=== PATIENT | male | born 1930 | race Caucasian/White ===

== ENCOUNTER 2016-09-09 16:00 | Inpatient (IN) | payer MEDICARE, OTHER ==
[~2016-09-09] VITALS: Ht 177.8 cm; Wt 63.5 kg
[~2016-09-09 16:00] MED LIST: BAYER CHEWABLE81 MG PO; BUMEX2 MG PO; CORDARONE200 MG PO; DIOVAN320 MG PO; DYAZIDE 37.5/251 CAP PO; FLOMAX0.4 MG PO; FLORAJEN3 CAPS460 MG PO; INDERAL10 MG PO; IPRAT-ALBUT 0.5-3 ML UPD; LIPITOR10 MG PO; LOVENOX30 MG/0.3 SC; MAXIPIME 1 GM/D51 G1 IV; MUCINEX600 MG PO; MUCOMYST 20200 MG/M2 PO; NAC600 MG PO; NIFEDIPINE ER60 MG PO; NITROSTAT0.4 MG SL; PEPCID20 MG PO; PLAVIX75 MG PO; PROCRIT/EP3000 UNITS SQ; PULMICORT0.5 MG/21 INH; SAW PALMETTO450 MG PO; TESSALON PERLE100 MG PO
[2016-09-09 18:21] VITALS: BP 129/57; BMI 20.1
--- NOTE | 2016-09-09 19:30 | NUR ---
PATIENT IN BED, AWAKE. DENIES CURRENT NEEDS.
[2016-09-09 21:10] VITALS: BP 115/56
--- NOTE | 2016-09-09 21:10 | NUR ---
ASSESSMENT AND HS MEDS COMPLETE. BRIDGED PATIENT'S HEELS DUE TO PINK SLIGHTLY SOFT HEELS. WILL MONITOR. O2 @ 2L PER N/C. CONTINUES ON TELEMETRY IN SR @65 BPM WITH BBB.
--- NOTE | 2016-09-09 22:00 | NUR ---
RESTING QUIETLY IN BED, EYES CLOSED.
--- NOTE | 2016-09-10 00:10 | NUR ---
RESTING QUIETLY IN BED, EYES CLOSED. GRANDSON IN RECLINER BEHIND DOOR TO ROOM.
--- NOTE | 2016-09-10 01:45 | NUR ---
PATIENT AWAKE. PROVIDED HIM WITH FRESH ICE WATER IN HIS BEDSIDE MUG. GRANDSON REPORTS HE HELPED MR. JOINER UP TO BR TO URINATE IN THE PAST HOUR. PATIENT DENIES CURRENT NEEDS.
--- NOTE | 2016-09-10 06:25 | NUR ---
FLUSHED LEFT FOREARM S/L WITH 10ML NS. REMAINS PATENT. PATIENT STATES HE CANNOT SIGN ADMISSION DOCUMENTS DUE TO HAND TREMORS. REVIWED INFORMATION CONTAINED IN DOCUMENTS WITH PATIENT. CO-WITNESSED HIS DOCUMENTS WITH NESTOR PATTERSON.
[2016-09-10 07:00] VITALS: BP 130/63
[2016-09-10 07:24] LABS: BASOPHILS 0.5 % (0.0-2.0); EOSINOPHILS 4.3 % (0-7); HEMATOCRIT 31.3 % (42.0-54.0); HEMOGLOBIN 10.2 g/dL (13.5-17.5); IMMATURE GRANULOCYTES 1.2 % (0-5); LYMPHOCYTES 19.8 % (15-50); MCH 28.5 pg (26.0-34.0); MCHC 32.6 g/dL (31.0-37.0); MCV 87.4 fL (80.0-100.0); MEAN PLATELET VOLUME 10.7 fL (7.4-10.4); MONOCYTES 12.9 % (2-11); NEUTROPHILS 61.3 % (40-80); RBC 3.58 10x6/uL (4.20-6.10); RDW 13.1 % (11.5-14.5); WBC 11.3 10x3/uL (4.8-10.8)
[2016-09-10 07:28] LABS: PLATELET COUNT 332 10x3/uL (130-400)
[2016-09-10 07:39] LABS: ANION GAP 13.4 mmol/L (8-16); CARBON DIOXIDE 25.6 mmol/L (21.0-32.0); CREATININE - SERUM 2.5 mg/dL (0.6-1.3)
--- NOTE | 2016-09-10 08:00 | NUR ---
SHIFT ASSMT COMPLETED.BREAKFAST GIVEN.ACCOMPAINED BY SON.CL IN REACH.
--- NOTE | 2016-09-10 12:00 | NUR ---
SITTING UP EATING LUNCH.DENIES NEEDS.
[2016-09-10 13:38] VITALS: Ht 177.8 cm; Wt 63.5 kg
--- NOTE | 2016-09-10 19:30 | NUR ---
PT IS RESTING IN BED WITH EYES OPEN. ALERT AND ORIENTED X 3. DENIES PAIN OR DISCOMFORT AT THIS TIME. VSS. TELEMETRY UNIT NOTED. SR'S ARE UP X 3 IN BED. CALL LIGHT AND BEDSIDE TABLE ARE WITHIN EASY REACH.
[2016-09-10 19:58] VITALS: BP 114/72
--- NOTE | 2016-09-10 21:17 | NUR ---
PT IS RESTING IN BED WITH EYES OPEN. VOICED NO NEEDS. NO DISTRESS NOTED.
--- NOTE | 2016-09-11 00:06 | NUR ---
RESTING IN BED WITH EYES CLOSED.
--- NOTE | 2016-09-11 03:27 | NUR ---
PT RESTING QUIETLY IN BED WITH EYES CLOSED. NO DISTRESS NOTED.
--- NOTE | 2016-09-11 05:30 | NUR ---
EYES CLOSED, RESPIRATIONS REGULAR AND UNLABORED, NO S/S OF ACUTE DISTRESS.
[2016-09-11 07:00] VITALS: BP 125/64
--- NOTE | 2016-09-11 08:00 | NUR ---
SHIFT ASSMT COMPLETED.DENIES NEEDS.BREAKFAST GIVEN.CL IN REACH.
--- NOTE | 2016-09-11 12:00 | NUR ---
SITTING UP IN WC EATING LUNCH.SON AT CHAIRSIDE VISITING.CL IN REACH.
--- NOTE | 2016-09-11 18:00 | NUR ---
SON AT BEDSIDE.DENIES NEEDS.
[2016-09-11 19:38] VITALS: BP 121/54
--- NOTE | 2016-09-11 20:09 | NUR ---
DC'D SALINE LOCK FROM LEFT FA, CANNULA INTACT, PT TOLERATED WELL. INSERTION DATED 09/08, SLIGHT REDNESS AT SITE OF INSERTION.
--- NOTE | 2016-09-11 22:49 | NUR ---
PT IS RESTING ON SIDE, EYES CLOSED, RESPIRATIONS REG AND UNLABORED.
--- NOTE | 2016-09-12 03:30 | NUR ---
pt stated he was in distress, pt concerned that he wasn't getting his flomax, referred emar and assured pt he was getting a daily dose of the medication, pt states he has prostrate problems and can't seem to empty his bladder. pt also states he has a feeling in his throat. pt states he gets it sometimes but and he has asked several doctors and they don't know what it is.
--- NOTE | 2016-09-12 05:31 | NUR ---
pt denies passing gas, ambulates with walker to bathroom, states his throat settled down, will see what it does when he lies down again.
[2016-09-12 07:32] LABS: ANION GAP 14.1 mmol/L (8-16); CALCIUM 8.6 mg/dL (8.5-10.1); CARBON DIOXIDE 23.8 mmol/L (21.0-32.0); CREATININE - SERUM 2.4 mg/dL (0.6-1.3); POTASSIUM - SERUM 3.9 mmol/L (3.5-5.1)
[2016-09-12 07:49] LABS: BASOPHILS 0.4 % (0.0-2.0); HEMATOCRIT 31.3 % (42.0-54.0); HEMOGLOBIN 10.1 g/dL (13.5-17.5); IMMATURE GRANULOCYTES 1.1 % (0-5); LYMPHOCYTES 20.4 % (15-50); MCH 28.7 pg (26.0-34.0); MCHC 32.3 g/dL (31.0-37.0); MCV 88.9 fL (80.0-100.0); MEAN PLATELET VOLUME 10.1 fL (7.4-10.4); MONOCYTES 9.5 % (2-11); NEUTROPHILS 64.6 % (40-80); PLATELET COUNT 370 10x3/uL (130-400); RBC 3.52 10x6/uL (4.20-6.10); RDW 13.5 % (11.5-14.5); WBC 11.1 10x3/uL (4.8-10.8)
[2016-09-12 08:45] VITALS: BP 131/67
--- NOTE | 2016-09-12 09:22 | RHP ---
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 The patient is an 85-year-old gentleman who is admitted to the inpatient rehab for CHF myopathy, had a recent non-Q-wave WI with cardiac catheterization with stent placement on August 30. He has got a history of chronic systolic congestive heart failure, coronary artery disease, hypertension, and hyperlipidemia. He presented to the Emergency Room on September 01 with increasing shortness of breath, dyspnea on exertion, and found to be in pulmonary edema, found to be in ____ with jpxur-fz-vzzxsjf renal failure. His creatinine was in the 1.9 to 2 range. He was now in the 4 range. He did undergo cardiac catheterization for a non-Q-wave WI with PTCA stent of the left main and circumflex. He does not have any recurrent anginal type symptomatology. He was doing well after this and left hospital; however, became more progressively shortness of breath due to renal failure. He has not had any palpitations since being on telemetry, but has not had any further ventricular tachycardia either. He had been in a controlled sinus rhythm on amiodarone. He also had a CT-guided thoracentesis on September 03 for a right pleural effusion and 1000 cc of sanguinous fluid was aspirated. He is definitely deconditioned and needs inpatient rehab to get back to prior level of functioning. COMORBIDITIES: Include gyvdm-bh-zyklaex renal sufficiency, coronary artery disease, pulmonary edema, recent non-Q-wave WI, ventricular tachycardia, hyperlipidemia, ischemic heart disease, right pleural effusion, history of coronary artery disease, and chronic kidney disease. PAST MEDICAL HISTORY: Significant for coronary artery disease. He has got a history of chronic kidney disease, hypertension, and renal artery stenosis. PAST SURGICAL HISTORY: Includes cataract surgery. He has had stent placement, coronary artery bypass grafting. ALLERGIES: No known drug allergies. CURRENT MEDICATIONS: Include Flomax 0.4 mg daily, nifedipine XL 60 mg daily. He is on ____. He is on Lovenox 30 mg subQ daily, Plavix 75 mg daily, Lipitor 10 mg daily, aspirin chewable 81 mg daily, Cordarone 200 mg daily, propranolol 10 mg t.i.d., Nitrostat p.r.n., Mucinex 600 mg b.i.d., Pepcid 20 mg b.i.d., Procrit 6000 units 3 times weekly, budesonide 0.5 mg b.i.d., ____ 100 mg t.i.d., Mucomyst 600 mg q.12 hours, and MiraLax 17 grams in 8 ounces of water daily. HABITS: No current alcohol or tobacco use. FAMILY HISTORY: Noncontributory. HISTORY AND PHYSICAL [id number] DOMENICA JOINER SOCIAL HISTORY: The patient wants to return back home and hopefully get back to his prior level of functioning and be able to function there. REVIEW OF SYSTEMS: GENERAL: Does complain of weakness and fatigue. HEENT: Denies cold, cough, or congestion. CARDIOVASCULAR: Denies chest pain. PHYSICAL EXAMINATION: VITAL SIGNS: Stable, afebrile. GENERAL: Elderly gentleman in no acute distress, alert upon exam. HEENT: Normocephalic and atraumatic. Mucosa moist. NECK: Supple. No lymphadenopathy. LUNGS: Clear at this time. HEART: ____ rate and rhythm. ABDOMEN: Benign. EXTREMITIES: No clubbing, cyanosis, or edema. NEUROLOGIC: Seems intact. LABORATORY DATA: His white count 11.3, H&H of 10 and 31 and platelet count was 332. Sodium 136, potassium 4.0, BUN and creatinine of 71 and 2.5 and blood sugar was noted to be 89. ASSESSMENT: This is an 85-year-old gentleman admitted to the rehab with a working diagnosis of congestive heart failure induced myopathy. The patient has potential to make improvement. We instituted the following multidisciplinary therapies including to, but not limited to physical, occupational, respiratory, speech, nutritional services, prosthetics and orthotics. Given his complex condition and risk for more complications, rehabilitation services cannot be provided at a low level of care such as a shelter facility. PLAN: 1. Admit to [facility] rehab for intensive inpatient therapy to include the following disciplines: A. Physical therapy to improve gait, all transfer skills and bed mobility to a modified independent level. B. Occupational therapy to improve activities of daily living to a modified independent level. C. Case management to assist with discharge planning and placement options. D. Nutrition to assist with nutritional needs. E. Rehabilitation nursing to assist in monitoring the patient's underlying medical conditions and to assist with any type of bowel or bladder management. 2. The patient's current medications and medical care will be continued. 3. The patient will be placed on standard fall precautions. 4. The patient's estimated length of stay is approximately 10-14 days. 5. Discuss this patient during care team staff meeting this week. TRANSINT:[id number] Voice Confirmation ID: [id number] DOCUMENT ID: [id number] HISTORY AND PHYSICAL [id number] DOMENICA JOINER SCOTT MD at 0922 CC: [id number] DICTATION DATE: 09/10/16 1146 TECHNICAL SUPPORT REPRESENTATIVE: 09/10/16 1718 ADM IN [id number] [place] [address]
--- NOTE | 2016-09-12 20:53 | NUR ---
PT RESTING IN BED. VS AND ASSESSMENT COMPLETE. PT REMINDED TO USE CL FOR NEEDS. PT DENEIS NEEDS AT THIS TIME. BED LOW. CLIN REACH. WCTM.
[2016-09-12 21:27] VITALS: BP 126/64
--- NOTE | 2016-09-12 23:35 | NUR ---
PT RESTING, EYES CLOSED. BED LOW. CL IN REACH. WCTM.
--- NOTE | 2016-09-13 01:25 | NUR ---
ASSISTED PT TO BR. PT BACK IN BED RESTING AND DENIES FURTHUR NEEDS AT THSI TIME. BED LOW. CL IN REACH. WCTM.
--- NOTE | 2016-09-13 08:11 | NUR ---
SITTING ON SIDE OF BED EATING BREAKFAST. DENIES NEEDS. CALL LIGHT IN REACH
[2016-09-13 08:34] VITALS: BP 148/67
--- NOTE | 2016-09-13 11:08 | NUR ---
NUTRITION MONITORING & EVAL CHART REVIEWED. PT TOLRATING RENAL DIET. ~75% INTAKE RECENT MEALS. NO BM RECORDED. RD FOLLOWING
--- NOTE | 2016-09-13 13:13 | NUR ---
LAYING DOWN IN BED RESTING QUIETLY. APPETITE IS POOR FOR LUNCH. FAMILY VISITING IN ROOM
--- NOTE | 2016-09-13 15:00 | NUR ---
SITTING UP IN W/C. ALERT AND ORIENTED. DENIES PAIN
--- NOTE | 2016-09-13 18:36 | NUR ---
RESTING QUIETLY IN BED. FAMILY VISITED. DENIES NEEDS
--- NOTE | 2016-09-13 19:10 | NUR ---
PATIENT IN BED, DENIES NEEDS.
--- NOTE | 2016-09-13 20:50 | NUR ---
ASSESSMENT AND HS MEDS COMPLETE. DENIES NEEDS. REPOSRT WAS UP TO BR WITH ASSIST ABOUT 40 MINUTES AGO.
[2016-09-13 21:19] VITALS: BP 114/59
--- NOTE | 2016-09-13 22:25 | NUR ---
RESTING QUIELTY IN BED, EYES CLOSED. LYING ON LEFT SIDE. EARLIER AT 2049 APPLIED BUTT PASTE TO MILDLY PINK BUTTOCKS/COCCYX AND TURNED PATIENT TO LEFT SIDE.
--- NOTE | 2016-09-14 00:05 | NUR ---
RESTING QUIETLY IN BED, EYES CLOSED AFTER TOILETING AT COMMODE AND RETURNING TO BED @ 2340.
--- NOTE | 2016-09-14 02:00 | NUR ---
RESTING IN BED, EYES CLOSED. ASSISTED HIM TO AMBULATE TO BR @ 0115 TO URINATE.
--- NOTE | 2016-09-14 03:50 | NUR ---
ASSISTED PATIENT UP TO BR TO URINATE, STANDING WITH R/W AT COMMODE. HAS BEEN USING CALL LIGHT TO CALL FOR ASSIST SINCE HE WENT BACK TO BED AFTER GETTING UP ALONE @ 2340. COMMENDED HIM FOR COOPERATING TO KEEP HIM SAFE.
[2016-09-14 05:52] LABS: BASOPHILS 0.5 % (0.0-2.0); EOSINOPHILS 3.2 % (0-7); HEMATOCRIT 28.1 % (42.0-54.0); HEMOGLOBIN 8.9 g/dL (13.5-17.5); IMMATURE GRANULOCYTES 0.8 % (0-5); LYMPHOCYTES 17.6 % (15-50); MCH 28.3 pg (26.0-34.0); MCHC 31.7 g/dL (31.0-37.0); MCV 89.2 fL (80.0-100.0); MEAN PLATELET VOLUME 9.9 fL (7.4-10.4); MONOCYTES 9.3 % (2-11); NEUTROPHILS 68.6 % (40-80); PLATELET COUNT 389 10x3/uL (130-400); RBC 3.15 10x6/uL (4.20-6.10); RDW 13.8 % (11.5-14.5); WBC 11.1 10x3/uL (4.8-10.8)
--- NOTE | 2016-09-14 06:09 | NUR ---
ASSISTED PATIENT UP TO BR TO TOILET AND THEN CHANGE HIS CLOTHING.
[2016-09-14 06:12] LABS: ANION GAP 12.8 mmol/L (8-16); CARBON DIOXIDE 23.1 mmol/L (21.0-32.0); CREATININE - SERUM 2.2 mg/dL (0.6-1.3); POTASSIUM - SERUM 3.9 mmol/L (3.5-5.1)
--- NOTE | 2016-09-14 09:15 | NUR ---
SITTING ON SIDE OF THE BED AND TOOK MEDS WITH EASE.
[2016-09-14 09:59] VITALS: BP 158/71
--- NOTE | 2016-09-14 11:16 | NUR ---
AMBULATING IN THE HALLWAY WITH THERAPIST AND WALKER.
--- NOTE | 2016-09-14 13:19 | NUR ---
SITTING IN CHAIR WITH FAMILY IN THE ROOM.
--- NOTE | 2016-09-14 15:35 | NUR ---
RESTING IN BED WITH SIDERAILS X2.
--- NOTE | 2016-09-14 17:57 | NUR ---
SITTING ON SIDE OF THE BED EATING DINNER.
--- NOTE | 2016-09-14 19:00 | NUR ---
RESTING IN BED, EYES CLOSED. NO DISTRESS NOTED.
[2016-09-14 19:45] VITALS: BP 134/59
--- NOTE | 2016-09-14 22:40 | NUR ---
ASSESSMENT AND HS MEDS COMPLETE. DENIES NEEDS. TOOK HS MEDS WITHOUT DIFFICULTY.
--- NOTE | 2016-09-15 | NUR ---
RESTING IN BED, EYES CLOSED. LYING ON RIGHT SIDE.
--- NOTE | 2016-09-15 01:50 | NUR ---
RESTING IN BED ON RIGHT SIDE, EYES CLOSED. NO EVIDENT DISCOMFORT.
--- NOTE | 2016-09-15 04:50 | NUR ---
RESTING QUIETLY IN BED ON RIGHT SIDE. NO APPARENT DISCOMFORT.
[2016-09-15 05:30] VITALS: BP 145/89
--- NOTE | 2016-09-15 05:30 | NUR ---
PATIENT CALLED TO REPORT PRESSURE HEADACHE IN HIS JAWS FACE AND HEAD. VS ARE FOLLOWS: T98.7, P 108 FLUTTER PER TELEMETRY, RR 24, BP 145/89. PULSEOX WAS 93% ON RA. PLACED HIM ON O2 @ 2L WHICH HAS BEEN ON STANDBY FOR DAYS. RESULTING PULSEOX IS 96%. PLACE COOL DAMP CLOTH ON HIS FOREHEAD AND GAVE HIM TYLENOL 650MG PO FOR HIS HEADACHE PER 1-TIME ORDER.
--- NOTE | 2016-09-15 06:50 | NUR ---
HONG FROM R/T REPORTS AFTER TREATMENT PATIENT IS SUSTAINING PULSEOX OF 88% ON 3L PER N/C. PATIENT REPORTS TO ME THAT HE HAS HAD LITTLE IMPROVEMENT IN HIS DISCOMFORT, BUT THAT HIS PAIN IS LESS A HEADACHE HE EARLIER DESCRIBED IT THAN ACHING IN THE FACE AND BILATERAL JAWLINE DONW INTO HIS NECK. WILL CALL DR. GAMBOA.
--- NOTE | 2016-09-15 07:00 | NUR ---
Pt. was received in bed at the beginning of this shift. Dr. Saldana was phoned x 2 with messages left to phone back the charge nurse. Pt. in heart flutter, low 100's. 02 sat is 88% on 302. Will continue to monitor closely.
[2016-09-15 08:00] VITALS: BP 133/78
--- NOTE | 2016-09-15 08:00 | NUR ---
DR. BEE CONDON. NEW ORDERS PLACED. EKG IS BEING DONE AND LAB DRAWING IN PROGRESS. REGISTERED SALES ASSISTANT ALERTED TO PT'S CONDITION. DR. TRAORE BEING CONSULTED.
--- NOTE | 2016-09-15 09:51 | NUR ---
Nutrition Follow Up: Chart reviewed. Diet: Renal PO Intake: 56% (8 meal avg) No new wt +BM 09/14/16 Meds and labs noted Pt with fair po intake at this time. Rec consider liberalizing diet to encourage po intake. RD following.
[2016-09-15 10:08] LABS: CKMB 15.5 U/L (0.0-3.6); CREATINE KINASE 121 UL (21-232)
--- NOTE | 2016-09-15 14:49 | NUR ---
CARE TEAM MEETING WAS HELD AND SON ATTENDED THE MEETING. TENATIVE DISCHARGE DATE IS 09/22/16 HOME WITH FAMILY, WILL CONTINUE TO FOLLOW WITH PATIENT AND WILL ASSIT WITH DISCHARGE NEEDS.
[2016-09-15 15:31] LABS: CKMB 103.1 U/L (0.0-3.6)
[2016-09-15 15:33] LABS: CREATINE KINASE 428 UL (21-232); TROPONIN-I 9.507 ng/mL (0.000-0.060)
--- NOTE | 2016-09-15 16:23 | EC ---
PATIENT:DOMENICA JOINER DATE OF SERVICE: 09/09/16 SEX: M MEDICAL RECORD: [id number] DATE OF : 29 LOCATION:[facility] AGE OF PATIENT: 85 ADMISSION DATE: 09/09/16 REFERRING PHYSICIAN: INTERPRETING PHYSICIAN: ENA BALTAZAR MD ECHOCARDIOGRAM REPORT ECHO CHARGES 4 ECHO COMPLETE CLINICAL DIAGNOSIS: MON Q KS/ CHEST PAIN ASSESS EF HX OF CAD/CABG/STENT ECHOCARDIOGRAPHIC MEASUREMENTS (adult normal given) AC root (d.<3.7cm) 3.8 LV Septum d (<1.2 cm> 1.8 Valve Excursion 1.7 LV Septum (systole) 1.9 Left Atria (s.<4.0cm> 3.9 LVPW d(<1.2cm) 1.7 RV (d.<2.3cm) 3.7 LVPW (sytole) 2.0 LV diastole(<5.6CM) 4.7 MV E-F(>70mm/sec) LV systole 4.1 LVOT Diameter 1.6 MV exc.(>10mm) 1.5 Est.ejection fraction (50-75%) Pericardial Effusion N DOPPLER: LVIT A 146 E 115 LA RVSP 44 LVOT 79 AOP1/2T 585 Asc. Ao 159 RVOT RA PA AV Gradient Peak 10.17 AV Mean 5.18 AV Area 1.1 MV Gradient Peak 7.6 MV Mean 2.3 MV Area COMMENTS: Director [employer]: Quintin MONROE Chimney Builder:2 Dr. Albert TAPE# PACS DATE OF SERVICE: 09/15/2016 Echocardiogram FINDINGS: 1. Left ventricle chamber size is within normal limits. Left ventricular systolic function is mildly depressed. Overall ejection fraction is in 40% range. 2. Left atrium is within normal limits at 3.9 cm. Right atrium and right ventricular chamber sizes are mildly dilated. ECHOCARDIOGRAM REPORT [id number] DOMENICA JOINER 3. Valvular structures: Aortic valve demonstrates mild calcific aortic stenosis. Valve area calculates 1.1 cm-squared and there is gradient of 10 mm across the valve. The remaining valvular structures have normal structure and motion. 4. Doppler interrogation reveals pdqjthng-gg-qhmoje mitral regurgitation, tofc-sj-qlfifxay tricuspid regurgitation, no other valvular insufficiency or stenosis and pulmonary systolic pressure is preserved at 44 mmHg. 5. No evidence of pericardial effusion or left ventricular thrombus. TRANSINT:[id number] Voice Confirmation ID: [id number] DOCUMENT ID: [id number] ENA BALTAZAR MD at 1623 CC: [id number] DICTATION DATE: 09/15/16 1319 EXPERIMENTAL PHYSICIST: 09/15/16 1342 ADM IN [facility] [address] [id number]
--- NOTE | 2016-09-15 18:48 | NUR ---
DR. MCCLELLAND ROUNDED TWICE THIS DAY. NEW ORDERS RECEIVED FROM HIM. PT. HAS HAD NO CHEST PAIN ALL DAY SINCE PUTTING NITRO OINTMENT 1 INCH ON CHEST Q 6 HOURS ORDERED. FAMILY IN AND OUT ALL DAY.
--- NOTE | 2016-09-15 19:00 | NUR ---
IN BED, AWAKE. LYING ON RIGHT SIDE, HOB UP 15 DEGREES. DENIES NEEDS.
[2016-09-15 21:10] VITALS: BP 124/60
--- NOTE | 2016-09-15 21:50 | NUR ---
ASSESSMENT AND HS MEDS COMPLETE. DENIES DISCOMFORT. IRRITATED THAT LAB WAS NOT ALREADY HERE TO DRAW HIS 3RD SET OF CARDIAC ENZYMES. TOLD HIM THAT THE EXACT TIMING WAS NOT IMPORTANT THAT THE DOCTOR HAVE THE 3RD SET TO COMPARE TO PREVIOUS LABS. INSISTED IT WAS TIME TO APPLY HIS NITRO PASTE. SAID IT WAS ONLY APPLIED ONCE TODAY, BUT INFORMED HIM THE EMAR RECORD SHOWS IT APLIED X2 ALREADY TODAY AND IT IS NOT DUE AGAIN UNTIL 2300 HRS. PATIENT OBVIOUSLY IS A BIT ANXIOUS REGARDING HIS CARDIAC ISSUES TODAY AND I BELIEVE THAT HIS IRRITABILITY IS DUE TO HIS ANXIETY.
--- NOTE | 2016-09-15 22:10 | NUR ---
RECEIVED A CALL FROM KATY JOINER, PATIENT'S SON INQUIRING ABOUT MR. JOINER'S LABS. TOLD HIM THE PHLEBOTAMIST HAD JUST DRAWN THEM AND THAT IT WOULD BE AWHILE BEFORE THEY RESULTED. ALSO TOLD HIM THAT I CANNOT RELEASE THE RESULTS OF MR. JOINER'S LABS UNTIL I HAVE SPOKEN TO THE PSYCHOLOGIST EDUCATIONAL WHICH I WILL DO WHEN RESULTS ARE AVAILABLE. HOWEVER, I DID TELL HIM I WILL CALL HIM AFTER I CALL DR. GIANG AND LET HIM KNOW IF THE DOCTOR WANTS TO MOVE PATIENT TO PCU.
[2016-09-15 22:34] LABS: CKMB 96.7 U/L (0.0-3.6)
[2016-09-15 22:35] LABS: CREATINE KINASE 552 UL (21-232); TROPONIN-I 17.217 ng/mL (0.000-0.060)
--- NOTE | 2016-09-15 23:15 | NUR ---
CLEANED OFF PRIOR NTG PASTE AND APPLIED FRESH NTG PASTE AND SECURED COVER SHEET WITH PAPER TAPE TO PATIENT'S LEFT CHEST. PATIENT CONTINUES ON TELEMETRY IN 60'S IN AND OUT OF CAF AND FLUTTER. CONTINUES TO DENY DISCOMFORT.
--- NOTE | 2016-09-15 23:30 | NUR ---
CALLED DR. GIANG WHO IS SIGNAL OPERATOR LINGUIST FOR DR. MCCLELLAND AND REPORTED RESULTS OF RECENT CE'S. INFORMED HIM PATIENT IS COMFORTABLE, DENIES CHEST PAIN OR OTHER DISCOMFORT AND THAT HE CONTINUES ON TELEMETRY. STATED THAT LONG PATIENT IS IN NO DISCOMFORT AND WITH HIS CK-MB NOW DROPPING THAT PATIENT WILL STAY ON REHAB TONIGHT, BARRING SIGNIFICANT NEGATIVE CHANGES. IMMEDIATELY CALLED PT'S SON TO REPORT THE SAME TO HIM. HE SEEMED RELIEVED. SAYS HE WILL BE IN EARLY (729) IN THE AM.
--- NOTE | 2016-09-16 00:15 | NUR ---
ASSISTED PATIENT UP TO BR. SAYS HE THINKS HE WILL HAVE A BM.
--- NOTE | 2016-09-16 02:30 | NUR ---
PATIENT AWAKE, CHANGING POSITIONS. DENIES CURRENT NEEDS.
--- NOTE | 2016-09-16 04:25 | NUR ---
RESTING IN BED ON LEFT SIDE, EYES CLOSED. RESPIRATIONS ARE QUIET AND UNLABORED.
--- NOTE | 2016-09-16 05:35 | NUR ---
ASSISTED PATIENT UP TO BR TO URINATE AT 0505. JUST NOW APPLIED FRESH NTG PASTE (1"). SECURED PAPER WITH TAPE TO SECURE TO MID CHEST. PATIENT DENIES NEEDS. SAYS HAS BEE RESTING WELL TONIGHT.
--- NOTE | 2016-09-16 05:45 | NUR ---
STRAIGHTENING PRESS OPERATOR HELPER JUST CHANGED PATIENT FROM LARGE URINARY IN CONTINENCE. WENT TO HELP HIM PUT ON FRESH SCRUB TOP AND FOUND PATIENT INCONTINENT OF A MODERQATED AMOUNT OF URINE THAT PENETRATED HIS BRIEF AND IN TO HIS PINK BED PAD. CLEANSED PATIENT. REAPPLIED MYCOSTATIN CREAM AND NYSTATIN POWDER TO RASH IN GROINS, ON SCROTUM AND NOW EXTENDING TO HIS BUTTOCKS. CHANGED HIS SCRUB TOP AND PIN BED PAD. PATIENT DENIES FURTHER NEEDS.
[2016-09-16 07:05] LABS: BASOPHILS 0.4 % (0.0-2.0); EOSINOPHILS 1.9 % (0-7); HEMATOCRIT 29.5 % (42.0-54.0); HEMOGLOBIN 9.5 g/dL (13.5-17.5); IMMATURE GRANULOCYTES 0.4 % (0-5); LYMPHOCYTES 12.8 % (15-50); MCH 29.2 pg (26.0-34.0); MCHC 32.2 g/dL (31.0-37.0); MCV 90.8 fL (80.0-100.0); MEAN PLATELET VOLUME 9.9 fL (7.4-10.4); MONOCYTES 8.2 % (2-11); NEUTROPHILS 76.3 % (40-80); PLATELET COUNT 362 10x3/uL (130-400); RBC 3.25 10x6/uL (4.20-6.10); RDW 14.5 % (11.5-14.5); WBC 14.2 10x3/uL (4.8-10.8)
[2016-09-16 07:17] LABS: ANION GAP 14.8 mmol/L (8-16); CALCIUM 8.9 mg/dL (8.5-10.1); CARBON DIOXIDE 22.7 mmol/L (21.0-32.0); CREATININE - SERUM 2.3 mg/dL (0.6-1.3); POTASSIUM - SERUM 4.5 mmol/L (3.5-5.1)
--- NOTE | 2016-09-16 08:00 | NUR ---
SITTING UP ON SIDE OF BED EATING BREAKFAST. DENIES CHEST PAIN OR SOB
[2016-09-16 09:50] VITALS: BP 120/59
--- NOTE | 2016-09-16 15:56 | NUR ---
PT WAS RESTING QUIETLY IN BED AND SON REFUSED FOR PT TO BE AWAKEN FOR HIS SCHEDULED SHOWER. AT ALMOST 1600, SON COMES TO DESK AND STATES FATHER IS READY FOR BATH. NURSE EXPLAINS AND APOLOGIZES TO SON THAT BATH NOT POSSIBLE RIGHT NOW DUE TO ADMISSIONS COMING AND STAFF TIED UP WITH THAT. SON STATED OK.
--- NOTE | 2016-09-16 19:45 | NUR ---
PT IS RESTING IN BED WITH EYES OPEN. ALERT AND ORIENTED X 4. DENIES ACUTE DISCOMFORT AT THIS TIME. NO COMPLAINT OF CHEST PAIN VOICED. VSS. PT IS DOING A UPDRAFT TX AT THIS TIME, AND TALKING TO THE PHONE TO A FRIEND. TELEMETRY UNIT IS INTACT. LEFT ARM SALINE LOCK NOTED. SR'S ARE UP X 3 IN BED. CALL LIGHT AND BEDSIDE TABLE ARE WITHIN EASY REACH.
--- NOTE | 2016-09-16 22:01 | NUR ---
PT ASSISTED TO THE BATHROOM WITH SBA. VOIDED WITHOUT DIFFICULTY. NO FURTHER NEEDS VOICED.
[2016-09-16 23:18] VITALS: BP 114/75
--- NOTE | 2016-09-17 01:30 | NUR ---
RESTING IN BED WITH EYES CLOSED.
--- NOTE | 2016-09-17 03:39 | NUR ---
PT RESTING QUIETLY IN BED WITH EYES CLOSED. NO ACUTE DISTRESS NOTED.
--- NOTE | 2016-09-17 04:02 | NUR ---
pt resting quietly, eyes closed respirations regular and unlabored, no s/s of acute distress. earlier in shift patient was watching tv and denied any needs.
--- NOTE | 2016-09-17 06:28 | NUR ---
PT RESTING IN BED WITH EYES OPEN. NO NEEDS VOICED. ASSISTED TO BATHROOM PRN.
[2016-09-17 09:00] VITALS: BP 137/60
--- NOTE | 2016-09-17 09:40 | NUR ---
SITTING IN WHEELCHAIR IN THE ROOM. CALLIGHT IN REACH AND NO NEEDS VOICED.
--- NOTE | 2016-09-17 11:35 | NUR ---
PT TOOK A SHOWER AND NO FALLS NOTED.
--- NOTE | 2016-09-17 13:26 | NUR ---
PT GETTING IN BED FROM WHEELCHAIR. NO NEEDS VOICED.
--- NOTE | 2016-09-17 15:49 | NUR ---
SITTING IN WHEELCHAIR IN GYM WORKING WITH THERAPY.
--- NOTE | 2016-09-17 17:32 | NUR ---
GET UP ON SIDE OF THE BED FOR DINNER.
--- NOTE | 2016-09-17 19:30 | NUR ---
PT IS RESTING IN BED WITH EYES OPEN. ALERT AND ORIENTED X 4. DENIES PAIN OR DISCOMFORT. VSS. LFA SALINE LOCK NOTED. TELEMETRY UNIT IS ON. PT STATES HE HAS HAD NO CHEST PAIN OR DISCOMFORT SINCE YESTERDAY. SR'S ARE UP X 2 IN BED. CALL LIGHT AND BEDSIDE TABLE ARE WITHIN EASY REACH.
[2016-09-17 20:01] VITALS: BP 119/60
--- NOTE | 2016-09-17 22:06 | NUR ---
RESTING QUIETLY IN BED WITH EYES CLOSED. RESPS ARE EVEN AND UNLABORED. NO ACUTE DISTRESS NOTED.
--- NOTE | 2016-09-18 00:01 | NUR ---
RESTING IN BED WITH EYES CLOSED.
--- NOTE | 2016-09-18 02:30 | NUR ---
PT AMBULATED TO THE BATHROOM WITH SBA. VOIDED WITHOUT DIFFICULTY. MED LOOSE BM NOTED. PT BECAME VERY SOB UPON RETURNING TO BED. O2 PLACED ON PT. HE CALMED DOWN QUICKLY. PT STATED HE FELT BETTER THEN.
--- NOTE | 2016-09-18 04:00 | NUR ---
RESTING, OXYGEN ON, INCREASED SOB WITH EXERTION.
--- NOTE | 2016-09-18 04:31 | NUR ---
PT AMBULATED TO THE BATHROOM WITH SBA. VOIDED WITHOUT DIFFICULTY. SMALL LOOSE BM NOTED. PT AMBULATED BACK TO BED. UPON GETTING BACK TO BED, PT IS VERY SHORT OF BREATH, AND WHEEZING AUDIBLY. O2 PLACED ON PT @ 2LPM. PT RETURNED TO NORMAL BREATHING QUICKLY. NEW NITRO PATCH APPLIED TO PT.
--- NOTE | 2016-09-18 05:55 | NUR ---
PT RESTING IN BED WITH EYES CLOSED. RESPS ARE EVEN AND UNLABORED. NO ACUTE DISTRESS NOTED. PT NOT AWOKEN AT THIS TIME.
--- NOTE | 2016-09-18 06:32 | NUR ---
LEFT NOTE FOR DR. GAMBOA, REGARDING INCREASED SOB OF BREATH.
[2016-09-18 09:00] VITALS: BP 107/45
--- NOTE | 2016-09-18 09:40 | NUR ---
RESTING ON RT SIDE IN BED RESP EASY WITH O2 2L/NC. CALLIGHT IN REACH. TOOK AM PILLS WITH EASE. NO NEEDS VOICED.
--- NOTE | 2016-09-18 10:35 | NUR ---
DR. GAMBOA NOTIFIED ABBOUT CHANGED IN PT'S BREATHING VIA PHONE AND HERE TO SEE PT.
[2016-09-18 11:42] LABS: CKMB 4.4 U/L (0.0-3.6)
[2016-09-18 11:44] LABS: TROPONIN-I 13.933 ng/mL (0.000-0.060)
[2016-09-18 11:57] LABS: CREATINE KINASE 490 UL (21-232)
--- NOTE | 2016-09-18 13:01 | NUR ---
PT IN WHEELCHAIR AND ROLLING IN HALLWAY WITH SON.
--- NOTE | 2016-09-18 15:45 | NUR ---
RESTING ON BACK IN BED WITH CALLIGHT IN REACH.
--- NOTE | 2016-09-18 17:47 | NUR ---
SITTING ON SIDE OF THE BED EATING DINNER. NO NEEDS VOICED.
--- NOTE | 2016-09-18 19:22 | NUR ---
PT IS RESTING IN BED WITH EYES OPEN. ALERT AND ORIENTED X 4. PT DENIES ANY DISCOMFORT AT THIS TIME. PT STATES HE DIDNT REALLY HAVE A BAD DAY, BUT HAS NOT FELT WELL ALL DAY. HE DENIES ANY FEELING ANY WORSE THAN HE HAS THE LAST FEW DAYS. TELEMETRY UNIT IS INTACT. SR'S ARE UP X 2 IN BED. CALL LIGHT AND BEDSIDE TABLE ARE WITHIN EASY REACH.
[2016-09-18 20:00] VITALS: BP 124/56
--- NOTE | 2016-09-18 22:04 | NUR ---
PT. IN BED WITH HOB UP FOR COMFORT. EYES CLOSED, RESP. EVEN AND CALL LIGHT WITHIN REACH.
--- NOTE | 2016-09-18 22:11 | NUR ---
PT IS RESTING QUIETLY IN BED WITH EYES CLOSED. RESPS ARE EVEN AND UNLABORED. NO ACUTE DISTRESS NOTED.
--- NOTE | 2016-09-19 00:24 | NUR ---
PT RANG CALL LIGHT STATING HIS NITRO PATCH WAS NOT WORKING, AND HE WAS HAVING ANGINA PAIN. B/P15/. PULSE 103. RESPS 24. PT MOANING IN PAIN. CARDIAC ENZYMES AND EKG ORDERED STAT. PT GIVEN NITRO SUBLINGUAL. HOB UP 30 DEGREES. O2 IS ON @ 3LPM PER NC.
--- NOTE | 2016-09-19 00:35 | NUR ---
THIRD NITRO GIVEN SUBLINGUAL. PT CONTINUES TO COMPLAIN OF CHEST PAIN. RAPID RESPONSE CALLED. UPON REENTERING ROOM, PT STATES HE FEELS BETTER NOW. BP 161/77. PULSE 100.
--- NOTE | 2016-09-19 00:58 | NUR ---
PT VOICED COMPLAINT OF HE THOUGHT HIS NITRO PATCH WAS IN THE WRONG PLACE, AND THAT IS WHAT CAUSED THIS PROBLEM. Teresa COSBY INFORMED PT WE WOULD MOVE IT TO WHERE HE WANTED IT. NEW NITRO PATCH APPLIED.
--- NOTE | 2016-09-19 00:59 | NUR ---
BEDSIDE COMMODE PLACED AT PTS BEDSIDE SO HE WOULD NOT HAVE TO EXCERT HIMSELF HARD GOING TO THE BATHROOM. PT STATES HE WILL NOT USE THIS, AND WILL AMBULATE TO THE BATHROOM WHEN HE NEEDS TO. COMMODE LEFT AT BEDSIDE.
[2016-09-19 01:21] LABS: CKMB 4.3 U/L (0.0-3.6); CREATINE KINASE 54 UL (21-232)
--- NOTE | 2016-09-19 01:22 | NUR ---
PT IS RESTING IN BED WITH EYES CLOSED. RESPS ARE EVEN AND UNLABORED. PT DENIES PAIN OR DISCOMFORT.
[2016-09-19 01:23] LABS: TROPONIN-I 16.197 ng/mL (0.000-0.060)
--- NOTE | 2016-09-19 01:24 | NUR ---
LAB CALLED TROPONIN OF 16.197
--- NOTE | 2016-09-19 03:13 | NUR ---
PT RESTING IN BED WITH EYES CLOSED. NO ACUTE DISTRESS NOTED.
--- NOTE | 2016-09-19 05:56 | NUR ---
PT RESTING IN BED WITH EYES OPEN. HE DENIES ANY DISCOMFORT THIS AM. TOLERATED AM MED WITHOUT DIFFICULTY. NO NEEDS VOICED.
--- NOTE | 2016-09-19 07:00 | NUR ---
Pt. was received in bed awake and oriented x 3. He denies any pain or discomfort. Vital signs: Temp. 97.9, pulse 73, resp. 16, b/p 117/74, 02Sat. 98%. Will be monitoring him closely this shift.
[2016-09-19 07:25] LABS: CKMB 3.3 U/L (0.0-3.6); CREATINE KINASE 47 UL (21-232)
[2016-09-19 07:26] LABS: TROPONIN-I 15.414 ng/mL (0.000-0.060)
[2016-09-19 09:19] LABS: BASOPHILS 0.6 % (0.0-2.0); EOSINOPHILS 5.2 % (0-7); HEMATOCRIT 25.7 % (42.0-54.0); HEMOGLOBIN 8.1 g/dL (13.5-17.5); IMMATURE GRANULOCYTES 0.3 % (0-5); LYMPHOCYTES 16.3 % (15-50); MCH 28.7 pg (26.0-34.0); MCHC 31.5 g/dL (31.0-37.0); MCV 91.1 fL (80.0-100.0); MEAN PLATELET VOLUME 10.3 fL (7.4-10.4); MONOCYTES 8.7 % (2-11); NEUTROPHILS 68.9 % (40-80); PLATELET COUNT 317 10x3/uL (130-400); RBC 2.82 10x6/uL (4.20-6.10); RDW 14.7 % (11.5-14.5); WBC 8.8 10x3/uL (4.8-10.8)
[2016-09-19 09:35] LABS: CALCIUM 8.2 mg/dL (8.5-10.1); CREATININE - SERUM 2.5 mg/dL (0.6-1.3); POTASSIUM - SERUM 4.2 mmol/L (3.5-5.1)
[2016-09-19 09:41] VITALS: BP 117/74
[2016-09-19 09:46] LABS: ANION GAP 19.4 mmol/L (8-16); CARBON DIOXIDE 18.8 mmol/L (21.0-32.0)
--- NOTE | 2016-09-19 12:33 | NUR ---
Dr. Saldana rounded this am and saw pt. Pt. is wearing Telementry. Call light is in reach. New orders received. Pt. did go to therapy gym and participated. Family here visiting. No signs of any discomfort or distress. Will continue to monitor.
[2016-09-19 13:19] LABS: CREATINE KINASE 57 UL (21-232)
[2016-09-19 13:21] LABS: CKMB 4.4 U/L (0.0-3.6); TROPONIN-I 16.414 ng/mL (0.000-0.060)
--- NOTE | 2016-09-19 19:47 | NUR ---
PT IS RESTING IN BED WITH EYES OPEN. DENIES NEEDS AT THIS TIME. STATES HE HAS HAD NO ANGINA PAIN TODAY. VSS. TELEMETRY UNIT IS INTACT. NO NEEDS VOICED AT THIS TIME. SR'S ARE UP X 2 IN BED. CALL LIGHT AND BEDSIDE TABLE ARE WITHIN EASY REACH.
[2016-09-19 20:00] VITALS: BP 144/65
--- NOTE | 2016-09-19 22:57 | NUR ---
PT AWOKEN FOR NITRO PATCH. NO NEEDS VOICED.
[2016-09-20] VITALS (10 sets, daily range): BP systolic 97–147; BP diastolic 35–75
--- NOTE | 2016-09-20 01:30 | NUR ---
PT IS RESTING QUIETLY IN BED WITH EYES CLOSED. NO DISTRESS NOTED.
--- NOTE | 2016-09-20 03:11 | NUR ---
RESTING IN BED WITH EYES CLOSED.
--- NOTE | 2016-09-20 03:50 | NUR ---
RESTING QUIETLY IN BED ON LEFT SIDE. EYES CLOSED. APPEARS COMFORTABLE. HR IS 76 A-FLUTTER PER TELEMETRY.
--- NOTE | 2016-09-20 07:15 | NUR ---
AWAKE.DENIES NEEDS.ASSESSMENT COMPLETED.SITTING ON SIDE OF BED.O2 INTACT AT 2L/MIN NC.BREATH SOUNDS CLEAR.WILL CONTINUE WITH PLAN OF CARE.CL IN EASY REACH,BED IN LOW POSITION.
--- NOTE | 2016-09-20 14:15 | NUR ---
Pt. in stable condition this shift. Denies any pain or discomfort. Dr. Saldana rounded this morning. Will continue to observe patient this day. Call light in reach.
--- NOTE | 2016-09-20 20:50 | NUR ---
RESTING IN BED. AROUSES TO VOICE. ALERT ORIENTED CONVERSANT. DENIES NEEDS. NO ACUTE DISTRESS NOTED.
--- NOTE | 2016-09-21 01:10 | NUR ---
RESTING IN BED ON LEFT SIDE, EYES CLOSED. APPEARS COMFORTABLE.
--- NOTE | 2016-09-21 05:29 | NUR ---
RESTING IN BED. ASKED ANOTHER STAFF MEMBER FOR ICE WATER. ALERT ORIENTED CONVERSANT. DENIES FURTHER NEEDS. NO ACUTE DISTRESS NOTE
--- NOTE | 2016-09-21 07:42 | NUR ---
UP TO BR WITHOUT ANY FALLS NOTED.
[2016-09-21 07:51] VITALS: BP 141/67
--- NOTE | 2016-09-21 08:00 | NUR ---
INTRODUCED SELF TO PT, BREAKFAST SERVED, PT STATES NO NEW NEEDS AT THIS TIME, WILL CONTINUE TO MONITOR, CALL LIGHT WITHIN REACH.
--- NOTE | 2016-09-21 09:48 | NUR ---
PT WITH PHYSICAL THERAPY, WILL CONTINUE TO MONITOR.
--- NOTE | 2016-09-21 09:55 | NUR ---
MORNING MEDICATION GIVEN, PT TOLERATED WELL, WILL CONTINUE TO MONITOR, CALL LIGHT WITH REACH. FAMILY AT BEDSIDE.
--- NOTE | 2016-09-21 12:08 | NUR ---
PT SITTING IN WHEELCHAIR EATING LUNCH, FAMILY AT BEDSIDE, PT STATES NO NEW NEEDS AT THIS TIME, WILL CONTINUE TO MONITOR, CALL LIGHT WITHIN REACH.
--- NOTE | 2016-09-21 13:30 | NUR ---
UP SITTING IN WC,VISITING WITH FAMILY.DENIES NEEDS.
--- NOTE | 2016-09-21 13:55 | NUR ---
Nutrititon Follow Up: Chart reviewed and pt discussed in rehab staffing. Pt is to d/c tomorrow. Diet: Renal PO Intake: 36% (9 meal avg) No new wt to assess Labs noted - BUN, Cr elevated Meds noted Pt continues with poor po intake. RD will continue to monitor pt progress during hospital stay.
--- NOTE | 2016-09-21 15:59 | NUR ---
RESTING QUIETLY IN BED.MEDS TAKEN WITHOUT DIFFICULTY.CL IN EASY REACH.
--- NOTE | 2016-09-21 17:10 | NUR ---
CARE TEAM MEETING: I MET WITH SON AND SPOUSE. PATIENT WILL NEED WALKER, O2, NEBULIZER AND SHOWER CHAIR WILL BE ORDERED WITH [facility]. APPOINTMENTS: DR. MCCLELLAND, RACHAEL PIKE/ ANGEL, DR. LEVY AND PCP DR. GENEVIEVE CARLISLE. [facility] WILL PROVIDE NURSING, PT, OT. WILL CONTNUE TO FOLLOW WITH PATIENT UNTIL DISCHARGE 09/22/16
[2016-09-21 20:14] VITALS: BP 134/64
--- NOTE | 2016-09-21 21:29 | NUR ---
SITTING UP IN BED WATCHING TV AT THIS TIME. NO ACUTE DISTRESS NOTED. WILL CONTINUE PLAN OF CARE.
--- NOTE | 2016-09-22 04:35 | NUR ---
PATIENT UP IN BR TO URINATE. TIMBER PACKER ASSISTED WITH AMBULATION (SBA).
--- NOTE | 2016-09-22 05:35 | NUR ---
IN BED, AWAKE. DENIES NEEDS.
[2016-09-22 06:22] LABS: BASOPHILS 0.7 % (0.0-2.0); EOSINOPHILS 8.4 % (0-7); HEMATOCRIT 30.6 % (42.0-54.0); HEMOGLOBIN 9.6 g/dL (13.5-17.5); IMMATURE GRANULOCYTES 0.4 % (0-5); LYMPHOCYTES 16.1 % (15-50); MCH 28.5 pg (26.0-34.0); MCHC 31.4 g/dL (31.0-37.0); MCV 90.8 fL (80.0-100.0); MEAN PLATELET VOLUME 10.4 fL (7.4-10.4); MONOCYTES 9.9 % (2-11); NEUTROPHILS 64.5 % (40-80); PLATELET COUNT 283 10x3/uL (130-400); RBC 3.37 10x6/uL (4.20-6.10); RDW 14.8 % (11.5-14.5); WBC 8.1 10x3/uL (4.8-10.8)
[2016-09-22 06:43] LABS: CALCIUM 8.5 mg/dL (8.5-10.1); CARBON DIOXIDE 20.2 mmol/L (21.0-32.0); CREATININE - SERUM 2.3 mg/dL (0.6-1.3); POTASSIUM - SERUM 4.2 mmol/L (3.5-5.1)
--- NOTE | 2016-09-22 07:07 | NUR ---
RESTING QUIETLY IN BED. CALL LIGHT IN REACH
[2016-09-22] MEDS ORDERED: NITRO-DUR0.4 MG TRANSDERM (08:14)
[2016-09-22 08:18] VITALS: BP 137/74
--- NOTE | 2016-09-22 09:00 | NUR ---
RESTING IN BED. DENIES PAIN OR INCREASED SOB. CALL LIGHT IN HAND
--- NOTE | 2016-09-22 09:48 | NUR ---
PATIENT DISCHARGING HOME WITH FAMILY. [facility] WILL PROVIDE NURSING, PT, OT. [facility] WILL DELIVER ROLLING WALKER, O2, NEBULIZER AND SHOWER CHAIR. APPOINTMENTS: DR. GENEVIEVE CARLISLE 09/29/16 @ 11:30, DR. LEVY 10/20/16 @ 11:30, DR. MCCLELLAND 10/03/16 @ 8:45, DR. ORTIZ/LYNN 10/05/16 @ 3:00 . ALL ORDERS HAVE BEEN FAXED WITH CONFORMATION RECIEVED. PATIENT CHOICE FORM FOR HOME HEALTH AND IM FORM EXPLAINED AND SIGNED AND FILED IN CHART
--- NOTE | 2016-09-22 11:11 | NUR ---
IN ROOM TALKING TO PT. WILL DC TODAY
--- NOTE | 2016-09-22 13:02 | NUR ---
FAMILY IN ROOM WITH PT. OXYGEN IN USE. IV DC'D
--- NOTE | 2016-09-22 14:14 | NUR ---
Nutrition education: Pts family requested instruction of renal diet. Pt with elevated BUN/Cr and with some fluid retention. Pt has had poor po intake. Advised pts family to let pt eat what he likes due to pt with poor po intake. Did advise family to reduce sodium, fluid intake some due to pt with fluid retention. Discussed with family to wait until further blood work taken and monitor pts labs and adjust diet as needed. Provided pt with printed material and RDN name and phone number.
--- NOTE | 2016-09-22 14:33 | NUR ---
DC HOME WITH FAMILY AND ALL PERSONAL BELONGINGS. TEACHING WITH FAMILY ON DC MEDS AND DC INSTRUCTIONS. FAMILY DENIES FURTHER QUESTIONS OR NEEDS. INSTRUCTED THEM TO CALL HOME HEALTH OR REHAB FOR QUESTIONS OR NEEDS. MEDS CALLED INTO [facility] IN [place].
--- NOTE | 2016-10-03 15:45 | EC ---
PATIENT:DOMENICA JOINER DATE OF SERVICE: 09/09/16 SEX: M MEDICAL RECORD: [id number] DATE OF : 28 LOCATION:[facility] [address] AGE OF PATIENT: 85 ADMISSION DATE: 09/09/16 REFERRING PHYSICIAN: INTERPRETING PHYSICIAN: LAUREN ALBERT M.D. ECHOCARDIOGRAM REPORT ECHO CHARGES 5 ECHO LIMITED CLINICAL DIAGNOSIS: CP ECHOCARDIOGRAPHIC MEASUREMENTS (adult normal given) AC root (d.<3.7cm) 0 LV Septum d (<1.2 cm> 0 Valve Excursion 0 LV Septum (systole) 0 Left Atria (s.<4.0cm> 0 LVPW d(<1.2cm) 0 RV (d.<2.3cm) 0 LVPW (sytole) 0 LV diastole(<5.6CM) 0 MV E-F(>70mm/sec) 0 LV systole 0 LVOT Diameter 0 MV exc.(>10mm) 0 Est.ejection fraction (50-75%) Pericardial Effusion N DOPPLER: LVIT 0 A 0 E 0 LA 0 RVSP 0 LVOT 0 AOP1/2T 0 Asc. Ao 0 RVOT 0 RA 0 PA 0 AV Gradient Peak 0 AV Mean 0 AV Area 0 MV Gradient Peak 0 MV Mean 0 MV Area 0 COMMENTS: LIMITED STUDY (2-D ONLY) COMPLETE ECHO DONE 09/15/16 Sr. Director Product Management: Tete JENSEN [employer] Representative:Quintin Albert TAPE# PACS DATE OF SERVICE: 09/21/2016 This is a limited study REFERRING PHYSICIAN: Wil Saldana MD INDICATION: Chest pain. DESCRIPTION: Left ventricle appears to be upper limits of normal size. There are no regional wall motion abnormalities noted. There is global hypokinesis ECHOCARDIOGRAM REPORT [id number] DOMENICA JOINER present. Estimated ejection fraction is in the order of 25-30%. Again, there are no regional wall motion abnormalities seen. There are no evidence of pericardial effusion. Left atrium and right atrium appeared normal in size. 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 I do not see any regional wall motion abnormalities. TRANSINT:[id number] Voice Confirmation ID: [id number] DOCUMENT ID: [id number] 09/30/2016 Edited to correct date of service, dmLAUREN Urrutia M.D. at 1545 CC: [id number] DICTATION DATE: 09/22/16 0748 SOAKER MEAT: 09/22/16 0856 DIS IN 09/22/16 [facility] [address] [id number]
== END 2016-09-22 14:30 | disposition home or self-care (01) | DRG 91 ==
LOC: D.REHAB 16:00
PROVIDERS: ADMIT Emergency Medicine
DX: G72.89 Other specified myopathies (principal); I21.4 Non-ST elevation (NSTEMI) myocardial infarction; I50.22 Chronic systolic (congestive) heart failure; N17.9 Acute kidney failure, unspecified; J81.1 Chronic pulmonary edema; I47.2 Ventricular tachycardia; J90 Pleural effusion, not elsewhere classified; Z95.5 Presence of coronary angioplasty implant and graft; I12.9 Hypertensive chronic kidney disease with stage 1 through stage 4 chronic kidney disease, or unspecified chronic kidney disease; N18.9 Chronic kidney disease, unspecified; I25.10 Atherosclerotic heart disease of native coronary artery without angina pectoris; E78.5 Hyperlipidemia, unspecified